=== PATIENT | female | born 1960 | race African-American/Black ===

== ENCOUNTER 2016-10-07 15:14 | Emergency (ER) | payer SELFPAY ==
[~2016-10-07] VITALS: Ht 160 cm; Wt 75.0 kg
[~2016-10-07 15:14] MED LIST: IBUP800T23 PO; TRAM50 PO
[2016-10-07 15:16] VITALS: BP 121/65; PULSE 84; RESP 24; TEMP 97.5; O2SAT 96
[2016-10-07] MEDS ORDERED: methylPREDNISolone SOD SUCC 125 MG/2 ML VIAL ONE (16:07)
[2016-10-07] MEDS ORDERED: NAPR500T PO (16:08)
--- NOTE | 2016-10-07 16:10 | PD ---
HPI Chief Complaint: Pain: Acute or Chronic Time Seen by Provider: 16:08 Travel History International Travel<30 days: No Contact w/Intl Traveler<30days: No Traveled to known affect area: No History of Present Illness HPI 56-year-old female presents to the emergency department for evaluation of right foot pain for 2 days. Denies any injury or trauma to her foot. States that in the middle of the night 2 nights ago she began to have cramping in the bottom of her right foot. States that this pain has persisted. Pain is aggravated with weightbearing. Alleviated with rest. Denies any fever, chills, nausea, vomiting, numbness or tingling, weakness, calf tenderness or pain. She has not taken anything for symptoms so far. No other complaints. PFSH Past Medical History Anemia: Yes Arthritis: Yes Asthma: No Autoimmune Disease: No Blood Disorders: No Anxiety: No Depression: No Heart Rhythm Problems: No Cancer: No Cardiovascular Problems: Yes (anemia) High Cholesterol: No Chemotherapy: No Chest Pain: No Congestive Heart Failure: No COPD: No Cerebrovascular Accident: No Diabetes: No Diminished Hearing: No Endocrine: No Gastrointestinal Disorders: Yes (GERD) GERD: No Genitourinary: Yes (INCONTINENCE) Headaches: Yes Hepatitis: No Hiatal Hernia: No Hypertension: No Immune Disorder: No Kidney Stones: No Musculoskeletal: Yes (CERVICAL DISC DISPLACEMENT) Neurologic: Yes (LEFT ARM/HAND NUMBNESS ) Psychiatric: No Reproductive: No Respiratory: No Myocardial Infarction: No Radiation Therapy: No Renal Failure: No Seizures: No Sleep Apnea: No Thyroid Disease: No Ulcer: No Menopausal: Yes Tubal Ligation: Yes Past Surgical History Abdominal Surgery: Yes (LAP BRYAN) AICD: No Section: Yes Cholecystectomy: Yes Gynecologic Surgery: Yes (C-SECTIONS X 3, HYSTERECTOMY 2007) Hysterectomy: Yes Joint Replacement: No Pacemaker: No Other Surgery: Yes Social History Alcohol Use: No Tobacco Use: No Substance Use: No Allergies-Medications (Allergen,Severity, Reaction): Coded Allergies: Aspirin (Verified Allergy, Severe, Itching, 02/02/16) Reported Meds & Prescriptions Reported Meds & Active Scripts Active Naproxen 500 Mg Tab 500 Mg PO BID 7 Days Ibuprofen 800 Mg Tab 800 Mg PO Q6H PRN Ultram (Tramadol HCl) 50 Mg Tab 50 Mg PO Q6 PRN Review of Systems Except as stated in HPI: all other systems reviewed are Neg Physical Exam Narrative GENERAL: Well-nourished and well-developed pleasant female patient in no acute distress who is nontoxic appearing. SKIN: Warm and dry. HEAD: Normocephalic and atraumatic. EYES: No injection, drainage, or hyphema noted. PERRLA. EOMI. NECK: Supple and the trachea is midline. CARDIOVASCULAR: Regular rate and rhythm. RESPIRATORY: Breath sounds are equal bilaterally with no accessory muscle use, wheezing, rhonchi, or crackles. MUSCULOSKELETAL: Tenderness to palpation along the plantar medial foot. No tenderness over the heel. No obvious deformities, swelling, cyanosis, or ecchymosis is present throughout the upper and lower extremities. Patient has full range of motion without any signs of neurovascular compromise. NEUROLOGICAL: Awake, alert, and oriented. Normal speech and gait. Cranial nerves are grossly intact. Data Data Last Documented VS Vital Signs Date Time Temp Pulse Resp B/P Pulse Ox O2 Delivery O2 Flow Rate FiO2 10/07/16 15:16 97.5 84 24 121/65 96 Room Air Orders Methylprednisolone So Succ Inj (Solumedr (10/07/16 16:07) MDM Medical Decision Making Medical Screen Exam Complete: Yes Emergency Medical Condition: Yes Differential Diagnosis Plantar fasciitis versus foot contusion versus sprain versus cramping Narrative Course 56-year-old female presents to the emergency department for evaluation of right plantar foot pain for 2 days. Patient is afebrile, vital signs are stable. No injury or trauma. The pain is along the plantar aspect of the foot and is point tender. The patient admittedly wears flat sandals and shoes. I suspect she has plantar fasciitis. Discussed importance of supportive foot wear. Discussed supportive care and advised to follow-up with her PCP. Diagnosis Primary Impression: Plantar fasciitis of right foot Referrals: Primary Care Physician Patient Instructions: General Instructions, Plantar Fasciitis (ED) Additional Instructions: Get supportive shoes. Take medications as prescribed with food and a full glass of water. Follow-up with your Primary Care Physician. Return to the ED for any acute worsening of symptoms. Med/Other Pt SpecificInfo: Prescription(s) given Scripts Naproxen 500 Mg [id number] Mg PO BID 7 Days Ref 0 Prov:Elva Mo MD 10/07/16 Disposition: 01 DISCHARGE HOME Condition: Stable Bettina Whitleyb 11, 2017 16:10
== END 2016-10-07 16:24 | disposition home or self-care (01) ==
LOC: NEPB 15:14
DX: M72.2 Plantar fascial fibromatosis (principal); D64.9 Anemia, unspecified; K21.9 Gastro-esophageal reflux disease without esophagitis
CPT/HCPCS: 99282; J2930

== ENCOUNTER 2018-06-13 16:42 | Observation (INO) ==
[2018-06-13] MEDS ORDERED: Famotidine PF Inj 20 MG/2 ML Vial IV.PUSH ONE (21:18)
[2018-06-13] MEDS ORDERED: Morphine Inj 4 MG/ML Vial IV.PUSH ONE (21:18)
[2018-06-13] MEDS ORDERED: Sod Chloride 0.9% Inj 1,000 ML IV.SIG ONE (21:18)
[2018-06-13 21:42] LABS: Baso % (Auto) 0.4 % (0.0-2.0); Eos % (Auto) 0.4 % (0.0-4.0); Hemoglobin 14.5 gm/dL (11.6-15.3); Lymph # (Auto) 1.9 th/mm3 (1.0-4.8); Lymph % (Auto) 19.3 % (9.0-44.0); Mean Corpuscular HGB Conc 32.3 % (32.0-36.0); Mean Corpuscular Hemoglobin 26.7 pg (27.0-34.0); Mean Corpuscular Volume 82.7 fL (80.0-100.0); Mean Platelet Volume 10.1 fL (7.0-11.0); Mono % (Auto) 9.5 % (0.0-8.0); Neut # (Auto) 7.1 th/mm3 (1.8-7.7); Neut % (Auto) 70.4 % (16.0-70.0); Platelet Count 175 th/mm3 (150-450); Red Blood Count 5.44 mil/mm3 (4.00-5.30); Red Cell Distribution Width 14.3 % (11.6-17.2)
--- NOTE | 2018-06-13 21:42 | ED ---
HPI General Chief Complaint: Abdominal Pain Stated Complaint: Lower ABD pain Time Seen by Provider: 06/13/18 21:09 Source: patient Mode of arrival: ambulatory Limitations: no limitations History of Present Illness HPI narrative: Patient is a 57-year-old female who presents with complaint of epigastric and suprapubic abdominal pain over the last 3 weeks associated with intermittent nausea and nonbilious, nonbloody emesis. No diarrhea and her last bowel movement was yesterday and was normal. No fever nor chills. She states that the pain normally occurs after she eats hamburger or hot dogs but she feels well after eating potato chips. She does not know if it is associated with alcohol intake. Her last beer was today. No chest pain or shortness of breath. No cough nor congestion. MD complaint: Reports abdominal pain Onset (ago): week(s) Pain Consistency: intermittent Location: Reports epigastric and suprapubic Severity: moderate Quality: Reports aching and fullness Radiation: Reports none Migration to: Reports no migration Relieving factors: nothing Exacerbating factors: nothing Associated symptoms: Reports nausea and vomiting Related Data Home Medications Medication Instructions Recorded Confirmed No Known Home Medications 06/13/18 06/13/18 Allergies Allergy/AdvReac Type Severity Reaction Status Date / Time aspirin Allergy Severe Itching Unverified 04/10/17 18:01 Review of Systems ROS: all other systems reviewed are negative [facility] Medical History Medical History Kidney stone (Acute) Surgical History Surgical History History of cholecystectomy (Acute) Social History Social History Substance History: No History of Abuse Second Hand Smoke Exposure: No Smoking Status: Never smoker How Often Do You Have a Drink Containing Alcohol: 4 or more times a week Recent Travel in [facility] within the Last 8 Weeks: No Recent Out of Country Travel within the Last 8 Weeks: No Immunization History Tetanus Immunization: Unsure Exam Narrative Exam Narrative: GENERAL: Well-appearing female in no acute distress SKIN: Focused skin assessment warm/dry. No rashes. HEAD: Atraumatic. Normocephalic. EYES: Pupils equal and round. No scleral icterus. No injection or drainage. ENT: No nasal bleeding or discharge. Mucous membranes pink and moist. NECK: Trachea midline. No JVD. CARDIOVASCULAR: Regular rate and rhythm. No murmur appreciated. Intact and equal peripheral pulses. Normal cap refill. RESPIRATORY: No accessory muscle use. Clear to auscultation. Breath sounds equal bilaterally. GASTROINTESTINAL: Abdomen soft, slight tenderness in the epigastric region, nondistended. Hepatic and splenic margins not palpable. MUSCULOSKELETAL: No obvious deformities. No clubbing. No cyanosis. No edema. NEUROLOGICAL: Awake and alert. No obvious cranial nerve deficits. Motor grossly within normal limits. Normal sensation. No ataxia. Normal speech. PSYCHIATRIC: Appropriate mood and affect; insight and judgment normal. Course Initial Documented Vital Signs Temperature 99.0 F 06/13/18 17:15 Pulse Rate 80 06/13/18 17:15 Blood Pressure 148/71 H 06/13/18 17:15 Pulse Oximetry 100 06/13/18 17:15 Last Documented Vital Signs Temperature 99.0 F 06/13/18 17:15 Pulse Rate 65 06/13/18 21:38 Respiratory Rate 16 06/13/18 21:05 Blood Pressure 161/71 H 06/13/18 21:05 Pulse Oximetry 99 06/13/18 21:05 Medical Decision Making MDM Narrative Medical decision making narrative: Patient is a 57-year-old female who presents with complaint of abdominal pain with nausea and vomiting. Labs are relatively unremarkable. EKG is without acute ischemic changes. CT pending at time of checkout. CT abdomen pelvis reveals a biliary stent with stones proximal to the stent. There is a trace elevation in the LFTs which has not been observed before. The postprandial nature of the pain is concerning for common bile duct disease. I discussed this with the patient in detail. I also spoke with Dr. Lyon of GI who recommended the patient spend the night here for a removal of the stent tomorrow. Symptoms are postprandial in nature with intra-and extrahepatic biliary ductal dilatation with a stent present and stones proximal to the stent. Call placed to Dr Snow at 1210AM. Medical Screen Exam Complete: Yes Emergency Medical Condition: Yes Differential Diagnosis Differential Diagnosis: Differential diagnosis includes but is not limited to gastritis, pancreatitis, electrolyte abnormality. Medical Records Medical records reviewed: Yes I reviewed the patient's medical records. Lab Data Result diagrams: 06/13/18 21:25 06/13/18 22:30 Lab Results 06/13/18 06/13/18 06/13/18 Range/Units 21:25 21:25 22:30 WBC 10.0 (4.0-11.0) th/mm3 RBC 5.44 H (4.00-5.30) mil/mm3 Hgb 14.5 (11.6-15.3) gm/dL Hct 45.0 (35.0-46.0) % MCV 82.7 (80.0-100.0) fL MCH 26.7 L (27.0-34.0) pg MCHC 32.3 (32.0-36.0) % RDW 14.3 (11.6-17.2) % Plt Count 175 (150-450) th/mm3 MPV 10.1 (7.0-11.0) fL Neut % (Auto) 70.4 H (16.0-70.0) % Lymph % (Auto) 19.3 (9.0-44.0) % [place]ruff % (Auto) 9.5 H (0.0-8.0) % Eos % (Auto) 0.4 (0.0-4.0) % Baso % (Auto) 0.4 (0.0-2.0) % Neut # (Auto) 7.1 (1.8-7.7) th/mm3 Lymph # (Auto) 1.9 (1.0-4.8) th/mm3 Woodruff # (Auto) 1.0 H (0.0-0.9) th/mm3 Eos # (Auto) 0.0 (0.0-0.4) th/mm3 Baso # (Auto) 0.0 (0.0-0.2) th/mm3 WBC Differential . Differential Comment Auto diff final Sodium 129 L (136-145) meq/L Potassium 6.1 H 3.8 D (3.5-5.1) meq/L Chloride 101 (98-107) meq/L Carbon Dioxide 22.2 (21.0-32.0) meq/L Anion Gap 6 (5-15) meq/L BUN 7 (7-18) mg/dL Creatinine 0.80 (0.50-1.00) mg/dL Estimated GFR 89 (>89) mL/min Random Glucose 83 (74-106) mg/dL Calcium 8.4 L (8.5-10.1) mg/dL Magnesium 2.2 (1.5-2.5) mg/dL Total Bilirubin 1.3 H (0.2-1.0) mg/dL AST 67 H (15-37) U/L ALT 75 H (10-53) U/L Alkaline Phosphatase 270 H (45-117) U/L Troponin I Less than 0.02 L (0.02-0.05) ng/mL Total Protein 8.8 H (6.4-8.2) g/dL Albumin 3.5 (3.4-5.0) g/dL Lipase 57 L (73-393) U/L Urine Color (Yellw/Straw) Urine Clarity (Clear) Urine pH (5.0-8.5) Ur Specific [place] (1.002-1.035) Urine Protein (Neg-Trace) mg/dL Urine Glucose (UA) (Negative) mg/dL Urine Ketones (Negative) mg/dL Urine Occult Blood (Negative) Urine Nitrate (Negative) Urine Bilirubin (Negative) Urine Urobilinogen (Less than 2) mg/dL Ur Leukocyte Esterase (Negative) Urine RBC (0-3) /hpf Urine WBC (0-5) /hpf Ur Squamous Epith Cells (0-5) /hpf Urine Bacteria (None) /hpf Urine Mucus (Occasional) /lpf Micro UA Comment Ur Microscopic Review Urine Culture Comments 06/13/18 Range/Units 23:00 WBC (4.0-11.0) th/mm3 RBC (4.00-5.30) mil/mm3 Hgb (11.6-15.3) gm/dL Hct (35.0-46.0) % MCV (80.0-100.0) fL MCH (27.0-34.0) pg MCHC (32.0-36.0) % RDW (11.6-17.2) % Plt Count (150-450) th/mm3 MPV (7.0-11.0) fL Neut % (Auto) (16.0-70.0) % Lymph % (Auto) (9.0-44.0) % Woodruff % (Auto) (0.0-8.0) % Eos % (Auto) (0.0-4.0) % Baso % (Auto) (0.0-2.0) % Neut # (Auto) (1.8-7.7) th/mm3 Lymph # (Auto) (1.0-4.8) th/mm3 [place]ruff # (Auto) (0.0-0.9) th/mm3 Eos # (Auto) (0.0-0.4) th/mm3 Baso # (Auto) (0.0-0.2) th/mm3 WBC Differential Differential Comment Sodium (136-145) meq/L Potassium (3.5-5.1) meq/L Chloride (98-107) meq/L Carbon Dioxide (21.0-32.0) meq/L Anion Gap (5-15) meq/L BUN (7-18) mg/dL Creatinine (0.50-1.00) mg/dL Estimated GFR (>89) mL/min Random Glucose (74-106) mg/dL Calcium (8.5-10.1) mg/dL Magnesium (1.5-2.5) mg/dL Total Bilirubin (0.2-1.0) mg/dL AST (15-37) U/L ALT (10-53) U/L Alkaline Phosphatase (45-117) U/L Troponin I (0.02-0.05) ng/mL Total Protein (6.4-8.2) g/dL Albumin (3.4-5.0) g/dL Lipase (73-393) U/L Urine Color Yellow (Yellw/Straw) Urine Clarity Clear (Clear) Urine pH 5.0 (5.0-8.5) Ur Specific [place] 1.006 (1.002-1.035) Urine Protein Negative (Neg-Trace) mg/dL Urine Glucose (UA) Negative (Negative) mg/dL Urine Ketones Negative (Negative) mg/dL Urine Occult Blood Small H (Negative) Urine Nitrate Negative (Negative) Urine Bilirubin Negative (Negative) Urine Urobilinogen Less than 2 (Less than 2) mg/dL Ur Leukocyte Esterase Negative (Negative) Urine RBC 1 (0-3) /hpf Urine WBC 1 (0-5) /hpf Ur Squamous Epith Cells <1 (0-5) /hpf Urine Bacteria Occasional H (None) /hpf Urine Mucus Few H (Occasional) /lpf Micro UA Comment Culture not ind Ur Microscopic Review Not Reportable Urine Culture Comments Culture not ind Imaging Data Radiologist's impression: Abdomen/Pelvis CT 06/13/18 21:18 CONCLUSION: 1. Biliary stent in the common bile duct with multiple stones in the common bile duct. There is intrahepatic and extrahepatic biliary duct dilatation. There is some vague increased density seen in the martha hepatis region. This could be secondary to debris filled ducts. An underlying mass in this region cannot be excluded. 2. Dilatation the pancreatic duct. Discharge Plan Discharge Disposition Patient Disposition: 30 Still Patient Discharge Condition Condition: Stable Discharge Details Diagnosis: Abdominal pain, acute Physicians Team ED Provider: Anahy Luis Primary Care Provider: Primary Care Physici,No Rxs /Orders / Referrals /Forms Prescriptions: No Action No Known Home Medications RF: 0 Discharge Interventions Interventions: Vital Signs Last Done: 06/13/18 21:05 Status ED Status: Ready for Discharge
[2018-06-13 22:09] LABS: Albumin 3.5 g/dL (3.4-5.0); Anion Gap 6 meq/L (5-15); Aspartate Aminotransferase 67 U/L (15-37); Blood Urea Nitrogen 7 mg/dL (7-18); Calcium 8.4 mg/dL (8.5-10.1); Carbon Dioxide 22.2 meq/L (21.0-32.0); Chloride 101 meq/L (98-107); Glomerular Filtration Rate 89 mL/min (>89); Glucose,Random 83 mg/dL (74-106); Lipase 57 U/L (73-393); Magnesium 2.2 mg/dL (1.5-2.5); Potassium 6.1 meq/L (3.5-5.1); Sodium 129 meq/L (136-145)
[2018-06-13 22:12] LABS: Alanine Aminotransferase 75 U/L (10-53); Alkaline Phosphatase 270 U/L (45-117); Total Protein 8.8 g/dL (6.4-8.2)
[2018-06-13 23:23] LABS: Bacteria,Urine Occasional /hpf; Bilirubin,Urine Negative (Negative); Clarity,Urine Clear (Clear); Color,Urine Yellow (Yellw/Straw); Glucose,Urine (UA) Negative (Negative); Leukocyte Esterase,Urine Negative (Negative); Mucus,Urine Few /lpf (Occasional); Nitrite,Urine Negative (Negative); Specific Gravity,Urine 1.006 (1.002-1.035); Squamous Epithelial Cell,Urine <1 /hpf (0-5)
--- NOTE | 2018-06-13 23:33 | CT ---
EXAM DATE: 06/13/2018 9:55 PM EDT AGE/SEX: 57 years / Female INDICATIONS: Upper abdominal pain. CLINICAL DATA: This is the patient's initial encounter. Patient reports that signs and symptoms have been present for 1 day and indicates a pain score of 0/10. MEDICAL/SURGICAL HISTORY: Renal calculi. Cholecystectomy. ORAL CONTRAST: No oral contrast ingested. RADIATION DOSE: 7.17 CTDI (mGy) COMPARISON: No prior exams available for comparison. TECHNIQUE: Multiple contiguous axial images were obtained through the abdomen and pelvis following b olus infusion of 70 ml Omnipaque 350 (iohexol) nonionic water-soluble contrast as a single exam dos e. No oral contrast ingested. Using automated exposure control and adjustment of the mA and/or kV ac cording to patient size, radiation dose was kept as low as reasonably achievable to obtain optimal di agnostic quality images. DICOM format image data is available electronically for review and comparis on. FINDINGS: Lower Lungs: The visualized lower lungs are clear. Liver: There is intrahepatic biliary ductal dilatation. The dilatation the common bile duct. There is some vague density seen at the martha hepatis at the bile duct confluence. The do appear to be multip le calcifications within the distal common bile duct measuring up to 5 mm. There is small 5 mm hypode nsity seen at the posterior superior aspect of the right lobe of the liver likely representing a smal l cyst. The patient is status post cholecystectomy. Spleen: Homogeneous density without enlargement. Pancreas: The pancreatic duct is dilated measuring 6 mm. Kidneys: Normal in size and shape. No evidence of mass or hydronephrosis. Adrenal Glands: Unremarkable. Aorta: The aorta and proximal iliac vessels are grossly unremarkable without aneurysmal dilation. Bowel/Mesentery: The bowel loops are grossly unremarkable. The cecum and sigmoid colon have a normal configuration. The appendix is normal. Abdominal Wall: Intact. Retroperitoneum: No evidence of adenopathy in the retrocrural, para-aortic, or deep pelvic regions. Bladder: Contours are smooth. Reproductive Organs: No abnormal masses or calcifications seen. Inguinal: The inguinal region is unremarkable without evidence of adenopathy. Bony Structures: Unremarkable. CONCLUSION: 1. Biliary stent in the common bile duct with multiple stones in the common bile duct. There is intr ahepatic and extrahepatic biliary duct dilatation. There is some vague increased density seen in the martha hepatis region. This could be secondary to debris filled ducts. An underlying mass in this ana on cannot be excluded. 2. Dilatation the pancreatic duct. Electronically signed by: Daniel Agudelo MD 06/13/2018 11:32 PM EDT
[2018-06-14] MEDS ORDERED: Bisacodyl 10 MG Supp RECTAL PRN (03:07)
[2018-06-14] MEDS ORDERED: Morphine Sulfate Inj 2 MG/ML Vial IV.PUSH PRN (04:07)
[2018-06-14] MEDS ORDERED: Sodium Chloride 0.9% 2 ML Flush PRN IV.FLUSH (04:13)
--- NOTE | 2018-06-14 04:22 | P.HP ---
History of Present Illness Service: [facility] Primary Care Physician: No Primary Care Physician History of Present Illness: 57-year-old female with a past medical history significant for anemia and gallstones with previous biliary stent placement presents to the emergency department for evaluation of abdominal pain times 3 weeks. The patient endorses postprandial nausea and vomiting with intermittent chills. She is an extremely poor historian. She reports that she had a biliary stent placed "years ago". She has not had any follow-up surrounding this. She denies any chest pain or shortness of breath. No lateralizing signs/symptoms. Review of Systems All other systems reviewed negative except as stated in HPI PMFSH - History History Provided By: Patient - Medical History Medical History: Medical History (Last Updated 06/14/18 @ 04:12 by Mary Snow MD) Gallbladder disease Kidney stone - Surgical History Surgical History: Surgical History (Last Updated 06/14/18 @ 04:13 by Mary Snow MD) History of History of biliary duct stent placement History of cholecystectomy - Family History Family History: Family History (Last Updated 06/14/18 @ 04:13 by Mary Snow MD) Other Colon cancer - Tobacco History Second Hand Smoke Exposure: No Smoking Status: Never smoker - Alcohol History How Often Do You Have a Drink Containing Alcohol: 4 or more times a week - Substance Use History Substance History: No History of Abuse - Travel History Recent Travel in the [place] Within the Last 8 Weeks: No Recent Travel Out of the Country Within the Last 8 Weeks: No - Immunization History Tetanus Immunization: Unsure Medications and Allergies Active Medications: Active Medications Bisacodyl (Dulcolax Supp) 10 mg RECTAL DAILY PRN PRN Reason: SEVERE CONSITIPATION Sodium Chloride (Ns Inj) 1,000 mls @ 100 mls/hr IV.CONT .Q10H PHIL Morphine Sulfate (Morphine Inj) 2 mg IV.PUSH Q4H PRN PRN Reason: pain 6-10 Ondansetron HCl (Zofran Inj) 4 mg IV.PUSH Q6H PRN PRN Reason: NAUSEA OR VOMITING Sennosides (Senokot) 17.2 mg PO Q12H PRN PRN Reason: Moderate Constipation Sodium Chloride (Ns Flush) 2 ml IV.FLUSH PRN PRN PRN Reason: FLUSH AFTER USING IV ACCESS Last Admin: 06/13/18 21:51 Dose: 2 ml Allergies Allergy/AdvReac Type Severity Reaction Status Date / Time aspirin Allergy Severe Itching Unverified 04/10/17 18:01 Home Medications Medication Instructions Recorded Confirmed Type No Known Home Medications 06/13/18 06/13/18 History Exam Vital signs: Vital Signs 06/13/18 17:15 06/13/18 21:05 06/13/18 21:38 Temperature 99.0 F Pulse Rate 80 82 65 Respiratory Rate 16 Blood Pressure 148/71 H 161/71 H Pulse Oximetry 100 99 06/14/18 00:04 06/14/18 02:26 06/14/18 03:08 Temperature 99.2 F Pulse Rate 61 74 72 Respiratory Rate 16 18 18 Blood Pressure 124/62 138/59 L 142/62 H Pulse Oximetry 100 100 98 Intake & Output 06/13/18 06/13/18 06/14/18 06:59 18:59 06:59 Intake Total 1000 / 1000 Balance 1000 / 1000 Weight 65.771 kg Intake: IV 1000 / 1000 NS Inj 1,000 ML @ Wide Open IV. 1000 / 1000 SIG BOLUS ONE Rx#:[id number] Narrative: Gen.: No acute distress Head: Normocephalic. Atraumatic. EENT: Pupils equal round and reactive to light. Nose without drainage. Airway intact. Throat without injection. Cardiovascular: Regular rate and rhythm. No murmurs, rubs or gallops. Respiratory: Lungs clear to auscultation bilaterally. No wheezes or rhonchi. Abdomen: Soft, tender to palpation in the epigastrium, nondistended. No peritoneal signs. Musculoskeletal: No gross deformities. No edema. Skin: No obvious rashes or erythema. Neuro: Sensory and motor grossly intact. Cranial nerves II through XII grossly intact. Results - Labs CBC & Chem 7: 06/13/18 21:25 06/13/18 22:30 Labs: Laboratory Results - last 24 hr 06/13/18 06/13/18 06/13/18 21:25 21:25 22:30 WBC 10.0 RBC 5.44 H Hgb 14.5 Hct 45.0 MCV 82.7 MCH 26.7 L MCHC 32.3 RDW 14.3 Plt Count 175 MPV 10.1 Neut % (Auto) 70.4 H Lymph % (Auto) 19.3 [place] % (Auto) 9.5 H Eos % (Auto) 0.4 Baso % (Auto) 0.4 Neut # (Auto) 7.1 Lymph # (Auto) 1.9 [place] # (Auto) 1.0 H Eos # (Auto) 0.0 Baso # (Auto) 0.0 WBC Differential . Differential Comment Auto diff final Sodium 129 L Potassium 6.1 H 3.8 D Chloride 101 Carbon Dioxide 22.2 Anion Gap 6 BUN 7 Creatinine 0.80 Estimated GFR 89 Random Glucose 83 Calcium 8.4 L Magnesium 2.2 Total Bilirubin 1.3 H AST 67 H ALT 75 H Alkaline Phosphatase 270 H Troponin I Less than 0.02 L Total Protein 8.8 H Albumin 3.5 Lipase 57 L Urine Color Urine Clarity Urine pH Ur Specific [place] Urine Protein Urine Glucose (UA) Urine Ketones Urine Occult Blood Urine Nitrate Urine Bilirubin Urine Urobilinogen Ur Leukocyte Esterase Urine RBC Urine WBC Ur Squamous Epith Cells Urine Bacteria Urine Mucus Micro UA Comment Ur Microscopic Review Urine Culture Comments 06/13/18 23:00 WBC RBC Hgb Hct MCV MCH MCHC RDW Plt Count MPV Neut % (Auto) Lymph % (Auto) [place] % (Auto) Eos % (Auto) Baso % (Auto) Neut # (Auto) Lymph # (Auto) [place] # (Auto) Eos # (Auto) Baso # (Auto) WBC Differential Differential Comment Sodium Potassium Chloride Carbon Dioxide Anion Gap BUN Creatinine Estimated GFR Random Glucose Calcium Magnesium Total Bilirubin AST ALT Alkaline Phosphatase Troponin I Total Protein Albumin Lipase Urine Color Yellow Urine Clarity Clear Urine pH 5.0 Ur Specific [place] 1.006 Urine Protein Negative Urine Glucose (UA) Negative Urine Ketones Negative Urine Occult Blood Small H Urine Nitrate Negative Urine Bilirubin Negative Urine Urobilinogen Less than 2 Ur Leukocyte Esterase Negative Urine RBC 1 Urine WBC 1 Ur Squamous Epith Cells <1 Urine Bacteria Occasional H Urine Mucus Few H Micro UA Comment Culture not ind Ur Microscopic Review Not Reportable Urine Culture Comments Culture not ind - Imaging Impressions Abdomen/Pelvis CT 06/13/18 21:18 CONCLUSION: 1. Biliary stent in the common bile duct with multiple stones in the common bile duct. There is intrahepatic and extrahepatic biliary duct dilatation. There is some vague increased density seen in the martha hepatis region. This could be secondary to debris filled ducts. An underlying mass in this region cannot be excluded. 2. Dilatation the pancreatic duct. Caprini VTE Risk Assessment Caprini VTE Risk Assessment: No/Low Risk (score <= 1) Caprini Risk Assessment Model: Point Value = 1 Point Value = 2 Point Value = 3 Point Value = 5 Age 41-60 Minor surgery BMI > 25 kg/m2 Swollen legs Varicose veins or History of unexplained or recurrent spontaneous Oral contraceptives or hormone replacement Sepsis (< 1 month) Serious lung disease, including pneumonia (< 1 month) Abnormal pulmonary function Acute myocardial infarction Congestive heart failure (< 1 month) History of inflammatory bowel disease Medical patient at bed rest Age 61-74 Arthroscopic surgery Major open surgery (> 45 min) Laparoscopic surgery (> 45 min) Malignancy Confined to bed (> 72 hours) Immobilizing plaster cast Central venous access Age >= 75 History of VTE Family history of VTE Factor V Leiden Prothrombin [id number] Lupus anticoagulant Anticardiolipin antibodies Elevated serum homocysteine Heparin-induced thrombocytopenia Other congenital or acquired thrombophilia Stroke (< 1 month) Elective arthroplasty Hip, pelvis, or leg fracture Acute spinal cord injury (< 1 month) Prophylaxis Regimen: Total Risk Factor Score Risk Level Prophylaxis Regimen 0-1 Low Early ambulation 2 Moderate Order ONE of the following: *Sequential Compression Device (SCD) *Heparin 5000 units SQ BID 3-4 Higher Order ONE of the following medications: *Heparin 5000 units SQ TID *Enoxaparin/Lovenox 40 mg SQ daily (WT < 150 kg, CrCl > 30 mL/min) *Enoxaparin/Lovenox 30 mg SQ daily (WT < 150 kg, CrCl > 10-29 mL/min) *Enoxaparin/Lovenox 30 mg SQ BID (WT < 150 kg, CrCl > 30 mL/min) AND/OR *Sequential Compression Device (SCD) 5 or more Highest Order ONE of the following medications: *Heparin 5000 units SQ TID (Preferred with Epidurals) *Enoxaparin/Lovenox 40 mg SQ daily (WT < 150 kg, CrCl > 30 mL/min) *Enoxaparin/Lovenox 30 mg SQ daily (WT < 150 kg, CrCl > 10-29 mL/min) *Enoxaparin/Lovenox 30 mg SQ BID (WT < 150 kg, CrCl > 30 mL/min) AND *Sequential Compression Device (SCD) Assessment and Plan - Plan Assessment/plan: 1. Abdominal pain CT of the abdomen/pelvis significant for biliary stent with stones proximal to the stent with intra-and extrahepatic biliary ductal dilatation and dilatation of the pancreatic duct LFTs mildly elevated Gastroenterology consulted, appreciate assistance FEN N.p.o. NS at 100 cc/hour Electrolytes: Monitor and replete as needed
[2018-06-14] MEDS: Sod Chloride 0.9% Inj 1,000 ML IV.CONT SCH ×2 (05:27→14:10)
--- NOTE | 2018-06-14 10:29 | P.CONGI ---
History of Present Illness Consult date: 06/14/18 Consult reason: Biliary stent replacement Chief complaint: Poss Biliary Stent Obstruction History of Present Illness: This is a 57-year-old female who entered the emergency room for further evaluation on 06/13/2018 with mid and right upper quadrant abdominal pain. Onset of symptoms approximately 3 weeks ago which have worsened over the past week. Patient also notes fever and chills for the past week along with some nausea and decreased appetite and bloating. Patient does have a history of constipation but denies any straining and denies any melena stools or diarrhea. Patient does have a history of anemia as well as gallstones and had biliary stent replacement approximately 2013 or 2014 without any follow-up. Patient also notes daily alcohol consumption of beer and occasional shots of liquor. Current labs show hemoglobin 14.5, WBC count 10, bilirubin 1.3, AST 67, ALT 75, alkaline phosphatase 270, and lipase normal at 57. Gastroenterology was consulted to assist with biliary stent replacement and plan of care. Patient does note brother positive history of colon cancer at the age of 38 and patient notes no previous colonoscopy but EGD was evaluated with previous biliary stent placement. CT scan of the abdomen and pelvis does show a biliary stent in the common bile duct with multiple stones in the common bile duct. There is intrahepatic and extrahepatic biliary duct dilatation along with dilatation of the pancreatic duct. Some vague increased density seen in the martha hepatis region this could be debris-filled ducts but an underlying mass in this region cannot be excluded. <Lu Frazier - Last Filed: 06/14/18 10:29> Review of Systems All other systems reviewed negative except as stated in HPI <Lu Frazier - Last Filed: 06/14/18 10:29> PMFSH - History History Provided By: Patient - Medical History Medical History: Medical History (Last Updated 06/14/18 @ 04:12 by Mary Snow MD) Gallbladder disease Kidney stone - Surgical History Surgical History: Surgical History (Last Updated 06/14/18 @ 04:13 by Mary Snow MD) History of History of biliary duct stent placement History of cholecystectomy - Family History Family History: Family History (Last Updated 06/14/18 @ 04:13 by Mary Snow MD) Other Colon cancer - Tobacco History Second Hand Smoke Exposure: Yes Tobacco Use In Past 30 Days: No Smoking Status: Never smoker - Alcohol History How Often Do You Have a Drink Containing Alcohol: 4 or more times a week - Substance Use History Substance History: Past History - Substance Use Type Crack/Cocaine Route Used: Inhalation Reason for Use: Peer Pressure - Travel History Recent Travel in the [place] Within the Last 8 Weeks: No Recent Travel Out of the Country Within the Last 8 Weeks: No - Immunization History Tetanus Immunization: Unsure <Lu Frazier - Last Filed: 06/14/18 10:29> - Medical History Medical History: Medical History (Last Updated 06/14/18 @ 04:12 by Mary Snow MD) Gallbladder disease Kidney stone - Surgical History Surgical History: Surgical History (Last Updated 06/14/18 @ 04:13 by Mary Snow MD) History of History of biliary duct stent placement History of cholecystectomy - Family History Family History: Family History (Last Updated 06/14/18 @ 04:13 by Mary Snow MD) Other Colon cancer <David Lepe - Last Filed: 06/14/18 14:45> Medications and Allergies Active Medications: Active Medications Bisacodyl (Dulcolax Supp) 10 mg RECTAL DAILY PRN PRN Reason: SEVERE CONSITIPATION Sodium Chloride (Ns Inj) 1,000 mls @ 100 mls/hr IV.CONT .Q10H PHIL Last Admin: 06/14/18 05:27 Dose: 100 mls/hr Morphine Sulfate (Morphine Inj) 2 mg IV.PUSH Q4H PRN PRN Reason: pain 6-10 Ondansetron HCl (Zofran Inj) 4 mg IV.PUSH Q6H PRN PRN Reason: NAUSEA OR VOMITING Sennosides (Senokot) 17.2 mg PO Q12H PRN PRN Reason: Moderate Constipation Sodium Chloride (Ns Flush) 2 ml IV.FLUSH BID PHIL Sodium Chloride (Ns Flush) 2 ml IV.FLUSH PRN PRN PRN Reason: FLUSH AFTER USING IV ACCESS <Lu Frazier - Last Filed: 06/14/18 10:29> Active Medications: Active Medications Bisacodyl (Dulcolax Supp) 10 mg RECTAL DAILY PRN PRN Reason: SEVERE CONSITIPATION Sodium Chloride (Ns Inj) 1,000 mls @ 100 mls/hr IV.CONT .Q10H [facility] Last Admin: 06/14/18 14:10 Dose: Not Given Morphine Sulfate (Morphine Inj) 2 mg IV.PUSH Q4H PRN PRN Reason: pain 6-10 Ondansetron HCl (Zofran Inj) 4 mg IV.PUSH Q6H PRN PRN Reason: NAUSEA OR VOMITING Sennosides (Senokot) 17.2 mg PO Q12H PRN PRN Reason: Moderate Constipation Sodium Chloride (Ns Flush) 2 ml IV.FLUSH BID [facility] Last Admin: 06/14/18 14:09 Dose: Not Given Sodium Chloride (Ns Flush) 2 ml IV.FLUSH PRN PRN PRN Reason: FLUSH AFTER USING IV ACCESS <David Lepe - Last Filed: 06/14/18 14:45> Allergies Allergy/AdvReac Type Severity Reaction Status Date / Time aspirin Allergy Severe Itching Unverified 04/10/17 18:01 Home Medications Medication Instructions Recorded Confirmed Type No Known Home Medications 06/13/18 06/13/18 History Exam Vital signs: Vital Signs 06/13/18 17:15 06/13/18 21:05 06/13/18 21:38 Temperature 99.0 F Pulse Rate 80 82 65 Respiratory Rate 16 Blood Pressure 148/71 H 161/71 H Pulse Oximetry 100 99 06/14/18 00:04 06/14/18 02:26 06/14/18 03:08 Temperature 99.2 F Pulse Rate 61 74 72 Respiratory Rate 16 18 Blood Pressure 124/62 138/59 L 142/62 H Pulse Oximetry 100 100 98 06/14/18 07:40 Temperature 99.9 F H Pulse Rate 73 Respiratory Rate 12 Blood Pressure 116/56 L Pulse Oximetry 99 Intake & Output 06/13/18 06/14/18 06/14/18 18:59 06:59 18:59 Intake Total 1000 / 1000 Balance 1000 / 1000 Weight 65.771 kg Intake: IV 1000 / 1000 NS Inj 1,000 ML @ Wide Open IV. 1000 / 1000 SIG BOLUS ONE Rx#:[id number] Other: # Voids 0 Date of Last Bowel Movement 06/12/18 - Constitutional mild distress, obese (Mild), cooperative - Routine HEENT Exam Head: Present: normocephalic ENT: Present: mucous membranes moist - Routine Neck Exam Present: supple - Routine Respiratory Exam Present: accessory muscle use (No obvious shortness of breath at rest) - Routine Cardiovascular Exam Present: S1, S2 - Routine Abdominal Exam Present: normoactive bowel sounds (Right upper quadrant and mid abdominal discomfort at rest and with light palpation, mild bloating) - Routine Skin Exam Present: intact - Routine Neurological Exam Present: alert <Lu Frazier - Last Filed: 06/14/18 10:29> Vital signs: Vital Signs 06/13/18 17:15 06/13/18 21:05 06/13/18 21:38 Temperature 99.0 F Pulse Rate 80 82 65 Respiratory Rate 16 Blood Pressure 148/71 H 161/71 H Pulse Oximetry 100 99 06/14/18 00:04 06/14/18 02:26 06/14/18 03:08 Temperature 99.2 F Pulse Rate 61 74 72 Respiratory Rate 16 18 18 Blood Pressure 124/62 138/59 L 142/62 H Pulse Oximetry 100 100 98 06/14/18 07:40 06/14/18 08:00 Temperature 99.9 F H 98.3 F Pulse Rate 73 69 Respiratory Rate 12 16 Blood Pressure 116/56 L 113/56 L Pulse Oximetry 99 99 Intake & Output 06/13/18 06/14/18 06/14/18 18:59 06:59 18:59 Intake Total 1000 / 1000 Balance 1000 / 1000 Weight 65.771 kg Intake: IV 1000 / 1000 NS Inj 1,000 ML @ Wide Open IV. 1000 / 1000 SIG BOLUS ONE Rx#:[id number] Other: # Voids 0 Date of Last Bowel Movement 06/12/18 <David Lepe - Last Filed: 06/14/18 14:45> Results - Labs CBC & Chem 7: 06/13/18 21:25 06/13/18 22:30 Labs: Laboratory Results - last 24 hr 06/13/18 06/13/18 06/13/18 21:25 21:25 22:30 WBC 10.0 RBC 5.44 H Hgb 14.5 Hct 45.0 MCV 82.7 MCH 26.7 L MCHC 32.3 RDW 14.3 Plt Count 175 MPV 10.1 Neut % (Auto) 70.4 H Lymph % (Auto) 19.3 [place] % (Auto) 9.5 H Eos % (Auto) 0.4 Baso % (Auto) 0.4 Neut # (Auto) 7.1 Lymph # (Auto) 1.9 [place] # (Auto) 1.0 H Eos # (Auto) 0.0 Baso # (Auto) 0.0 WBC Differential . Differential Comment Auto diff final Sodium 129 L Potassium 6.1 H 3.8 D Chloride 101 Carbon Dioxide 22.2 Anion Gap 6 BUN 7 Creatinine 0.80 Estimated GFR 89 Random Glucose 83 Calcium 8.4 L Magnesium 2.2 Total Bilirubin 1.3 H AST 67 H ALT 75 H Alkaline Phosphatase 270 H Troponin I Less than 0.02 L Total Protein 8.8 H Albumin 3.5 Lipase 57 L Urine Color Urine Clarity Urine pH Ur Specific [place] Urine Protein Urine Glucose (UA) Urine Ketones Urine Occult Blood Urine Nitrate Urine Bilirubin Urine Urobilinogen Ur Leukocyte Esterase Urine RBC Urine WBC Ur Squamous Epith Cells Urine Bacteria Urine Mucus Micro UA Comment Ur Microscopic Review Urine Culture Comments 06/13/18 23:00 WBC RBC Hgb Hct MCV MCH MCHC RDW Plt Count MPV Neut % (Auto) Lymph % (Auto) [place] % (Auto) Eos % (Auto) Baso % (Auto) Neut # (Auto) Lymph # (Auto) [place] # (Auto) Eos # (Auto) Baso # (Auto) WBC Differential Differential Comment Sodium Potassium Chloride Carbon Dioxide Anion Gap BUN Creatinine Estimated GFR Random Glucose Calcium Magnesium Total Bilirubin AST ALT Alkaline Phosphatase Troponin I Total Protein Albumin Lipase Urine Color Yellow Urine Clarity Clear Urine pH 5.0 Ur Specific [place] 1.006 Urine Protein Negative Urine Glucose (UA) Negative Urine Ketones Negative Urine Occult Blood Small H Urine Nitrate Negative Urine Bilirubin Negative Urine Urobilinogen Less than 2 Ur Leukocyte Esterase Negative Urine RBC 1 Urine WBC 1 Ur Squamous Epith Cells <1 Urine Bacteria Occasional H Urine Mucus Few H Micro UA Comment Culture not ind Ur Microscopic Review Not Reportable Urine Culture Comments Culture not ind - Imaging Impressions Abdomen/Pelvis CT 06/13/18 21:18 CONCLUSION: 1. Biliary stent in the common bile duct with multiple stones in the common bile duct. There is intrahepatic and extrahepatic biliary duct dilatation. There is some vague increased density seen in the martha hepatis region. This could be secondary to debris filled ducts. An underlying mass in this region cannot be excluded. 2. Dilatation the pancreatic duct. <Lu Frazier - Last Filed: 06/14/18 10:29> - Labs CBC & Chem 7: 06/13/18 21:25 06/14/18 09:32 Labs: Laboratory Results - last 24 hr 06/13/18 06/13/18 06/13/18 21:25 21:25 22:30 WBC 10.0 RBC 5.44 H Hgb 14.5 Hct 45.0 MCV 82.7 MCH 26.7 L MCHC 32.3 RDW 14.3 Plt Count 175 MPV 10.1 Neut % (Auto) 70.4 H Lymph % (Auto) 19.3 [place] % (Auto) 9.5 H Eos % (Auto) 0.4 Baso % (Auto) 0.4 Neut # (Auto) 7.1 Lymph # (Auto) 1.9 [place] # (Auto) 1.0 H Eos # (Auto) 0.0 Baso # (Auto) 0.0 WBC Differential . Differential Comment Auto diff final Sodium 129 L Potassium 6.1 H 3.8 D Chloride 101 Carbon Dioxide 22.2 Anion Gap 6 BUN 7 Creatinine 0.80 Estimated GFR 89 Random Glucose 83 Calcium 8.4 L Magnesium 2.2 Total Bilirubin 1.3 H AST 67 H ALT 75 H Alkaline Phosphatase 270 H Troponin I Less than 0.02 L Total Protein 8.8 H Albumin 3.5 Lipase 57 L Urine Color Urine Clarity Urine pH Ur Specific [place] Urine Protein Urine Glucose (UA) Urine Ketones Urine Occult Blood Urine Nitrate Urine Bilirubin Urine Urobilinogen Ur Leukocyte Esterase Urine RBC Urine WBC Ur Squamous Epith Cells Urine Bacteria Urine Mucus Micro UA Comment Ur Microscopic Review Urine Culture Comments 06/13/18 06/14/18 23:00 09:32 WBC RBC Hgb Hct MCV MCH MCHC RDW Plt Count MPV Neut % (Auto) Lymph % (Auto) [place] % (Auto) Eos % (Auto) Baso % (Auto) Neut # (Auto) Lymph # (Auto) [place] # (Auto) Eos # (Auto) Baso # (Auto) WBC Differential Differential Comment Sodium 138 Potassium 3.8 Chloride 107 Carbon Dioxide 25.1 Anion Gap 6 BUN 6 L Creatinine 0.66 Estimated GFR Greater than 89 Random Glucose 79 Calcium 8.2 L Magnesium Total Bilirubin AST ALT Alkaline Phosphatase Troponin I Total Protein Albumin Lipase Urine Color Yellow Urine Clarity Clear Urine pH 5.0 Ur Specific [place] 1.006 Urine Protein Negative Urine Glucose (UA) Negative Urine Ketones Negative Urine Occult Blood Small H Urine Nitrate Negative Urine Bilirubin Negative Urine Urobilinogen Less than 2 Ur Leukocyte Esterase Negative Urine RBC 1 Urine WBC 1 Ur Squamous Epith Cells <1 Urine Bacteria Occasional H Urine Mucus Few H Micro UA Comment Culture not ind Ur Microscopic Review Not Reportable Urine Culture Comments Culture not ind - Imaging Impressions Abdomen/Pelvis CT 06/13/18 21:18 CONCLUSION: 1. Biliary stent in the common bile duct with multiple stones in the common bile duct. There is intrahepatic and extrahepatic biliary duct dilatation. There is some vague increased density seen in the martha hepatis region. This could be secondary to debris filled ducts. An underlying mass in this region cannot be excluded. 2. Dilatation the pancreatic duct. <David Lepe - Last Filed: 06/14/18 14:45> Assessment and Plan - Plan 57-year-old female who entered the emergency room for further evaluation on with mid and right upper quadrant abdominal pain. Onset of symptoms approximately 3 weeks ago which have worsened over the past week. Patient also notes fever and chills for the past week along with some nausea and decreased appetite and bloating. Patient does have a history of constipation but denies any straining and denies any melena stools or diarrhea. Patient does have a history of anemia as well as gallstones and had biliary stent replacement approximately 2013 or 2014 without any follow-up. Patient also notes daily alcohol consumption of beer and occasional shots of liquor. Current labs show hemoglobin 14.5, WBC count 10, bilirubin 1.3, AST 67, ALT 75, alkaline phosphatase 270, and lipase normal at 57. Gastroenterology was consulted to assist with biliary stent replacement and plan of care. Patient does note brother positive history of colon cancer at the age of 38 and patient notes no previous colonoscopy but EGD was evaluated with previous biliary stent placement. CT scan of the abdomen and pelvis does show a biliary stent in the common bile duct with multiple stones in the common bile duct. There is intrahepatic and extrahepatic biliary duct dilatation along with dilatation of the pancreatic duct. Some vague increased density seen in the martha hepatis region this could be debris-filled ducts but an underlying mass in this region cannot be excluded. Common bile duct obstruction intrahepatic and extrahepatic Pancreatic duct obstruction, rule out mass Daily alcohol consumption consistent of beer and occasional shots of liquor Symptoms of chills and fever as well as right upper quadrant and mid upper abdominal pain onset for the past 3 weeks Hyperbilirubinemia, could be related to hepatocellular disease versus alcohol versus obstruction versus medications Mild transaminitis could be related to fatty liver versus hepatocellular disease versus alcohol versus obstruction Plan Diet n.p.o. for now Consent for ERCP today, scheduled for approximately [address] Lepe , procedure explained to patient Discussed alcohol abstinence Discussed outpatient colonoscopy after patient is feeling better and follow-up in the GI office Added MiraLAX daily Zofran and pain management as needed per attending Monitor labs including LFTs and bilirubin Supportive care Patient was seen per myself and Dr. Lepe, note was written on his behalf <Lu Frazier - Last Filed: 06/14/18 10:29> - Plan Seen and examined with [employer]ATOR, ercp planned. Monitor labs. <David Lepe - Last Filed: 06/14/18 14:45>
[2018-06-14 10:44] LABS: Anion Gap 6 meq/L (5-15); Blood Urea Nitrogen 6 mg/dL (7-18); Calcium 8.2 mg/dL (8.5-10.1); Carbon Dioxide 25.1 meq/L (21.0-32.0); Chloride 107 meq/L (98-107); Glomerular Filtration Rate Greater Than 89 mL/min (>89); Glucose,Random 79 mg/dL (74-106); Potassium 3.8 meq/L (3.5-5.1); Sodium 138 meq/L (136-145)
[2018-06-14] MEDS: Sodium Chloride 0.9% 2 ML Flush BID IV.FLUSH SCH ×2 (14:09→20:08)
[2018-06-14] MEDS ORDERED: Iohexol Inj 350 MG/ML 100 ML Bottle (for RAD Diag) IVCONTRAST ONE (15:01)
[2018-06-14] MEDS ORDERED: Iohexol 350 MG/ML 50 ML Vial (for Rad Diag) PO ONE (15:17)
[2018-06-14] MEDS ORDERED: Metoprolol Tartrate 25 MG Tablet PO ONE (15:25)
[2018-06-14] MEDS ORDERED: Chlorhexidine Gluconate 2% 1 Pack (2 Cloths) TOPICAL ONE (15:25)
--- NOTE | 2018-06-14 15:29 | GIPROC ---
[facility] [address] [facility] [place]. [facility], [id number] ERCP PROCEDURE REPORT EXAM DATE: 06/14/2018 PATIENT NAME: Naz Mccabe MR #: [id number] BIRTHDATE: 1960 ATTENDING: David Lepe MD ORDER #: [id number] PLASTIC MANAGER: Saji Shea Foust, Dan, Pena, Gabriela, and Kerri Edwards STATUS: inpatient INDICATIONS: The patient is a 57 yr old female here for an ERCP due to abdominal pain of suspected biliary origin, abnormal abdominal CT, bile duct stone on Computed Tomogram Scan, and abnormal liver function test PROCEDURE PERFORMED: ERCP with removal of calculus/calculi ERCP with stent placement MEDICATIONS: None and Per Anesthesia. CONSENT: The patient understands the risks and benefits of the procedure and understands that these risks include, but are not limited to: sedation, allergic reaction, infection, perforation and/or bleeding. Alternative means of evaluation and treatment include, among others: physical exam, x-rays, and/or surgical intervention. The patient elects to proceed with this endoscopic procedure. medical equipment was checked for proper function. Hand hygiene and appropriate measures for infection prevention was taken. After the risks, benefits and alternatives of the procedure were thoroughly explained, Informed was verified, confirmed and timeout was successfully executed by the treatment team. With the patient in left semi-prone position, medications were administered intravenously.The Pentax [id number] was passed from the mouth into the esophagus and further advanced from the esophagus into the stomach. From stomach scope was directed to the second portion of the duodenum. Major papilla was aligned with the duodenoscope. The scope position was confirmed fluoroscopically. Rest of the findings/therapeutics are given below. The scope was then completely withdrawn from the patient and the procedure completed. The pulse, BP, and O2 saturation were monitored and documented by the physician and the nursing staff throughout the entire procedure. The patient was cared for as planned according to standard protocol. The patient was then discharged to recovery in stable condition and with appropriate post procedure care. The ampulla was located the second portion of the duodenum, in a position more proximal than normal. Previuosly placed stent snared and removed through the mouth. CBD dilated with multiple filling defects. Balloon sweep x 2 with 15mm balloon. Debris and stoned xtruded through the ampulla. Duct washed with NS. Some bleeding at the ampulla, 8.5 x 7cm stent placed. ADVERSE EVENT: There were no complications. IMPRESSIONS: 1. Plastic stent placement 2. Common bile duct stone(s) RECOMMENDATIONS: 1. Antibiotics 2. Liver enzymes REPEAT EXAM: Return 1 month ERCP David Lepe MD eSigned: David Lepe MD 06/14/2018 3:29 PM cc:
--- NOTE | 2018-06-14 15:54 | P.PNIM ---
Subjective Interval history: Patient complains of some mild right upper quadrant pain however it is improved since initial admission. Physical Exam Vital signs: Vital Signs 06/13/18 17:15 06/13/18 21:05 06/13/18 21:38 Temperature 99.0 F Pulse Rate 80 82 65 Respiratory Rate 16 Blood Pressure 148/71 H 161/71 H Pulse Oximetry 100 99 06/14/18 00:04 06/14/18 02:26 06/14/18 03:08 Temperature 99.2 F Pulse Rate 61 74 72 Respiratory Rate 16 18 18 Blood Pressure 124/62 138/59 L 142/62 H Pulse Oximetry 100 100 98 06/14/18 07:40 06/14/18 08:00 Temperature 99.9 F H 98.3 F Pulse Rate 73 69 Respiratory Rate 12 16 Blood Pressure 116/56 L 113/56 L Pulse Oximetry 99 99 Intake & Output 06/13/18 06/14/18 06/14/18 18:59 06:59 18:59 Intake Total 1000 / 1000 Balance 1000 / 1000 Weight 65.771 kg Intake: IV 1000 / 1000 NS Inj 1,000 ML @ Wide Open IV. 1000 / 1000 SIG BOLUS ONE Rx#:[id number] Other: # Voids 0 Date of Last Bowel Movement 06/12/18 Narrative: General patient complains of mild abdominal pain, improved from yesterday. HEENT extraocular movements are intact, clear oropharyngeal mucosa, no JVD Cardiovascular S1-S2 audible, RRR, no murmurs rubs or gallops Respiratory clear to auscultation bilaterally Abdomen soft, patient complains of some abdominal pain in the right upper quadrant. Extremities no edema 2+ distal pulses in bilateral upper and lower extremities Neuro no neurological deficits. Results - Labs CBC & Chem 7: 06/13/18 21:25 06/14/18 09:32 Laboratory Results - last 24 hr 06/13/18 06/13/18 06/13/18 21:25 21:25 22:30 WBC 10.0 RBC 5.44 H Hgb 14.5 Hct 45.0 MCV 82.7 MCH 26.7 L MCHC 32.3 RDW 14.3 Plt Count 175 MPV 10.1 Neut % (Auto) 70.4 H Lymph % (Auto) 19.3 [place] % (Auto) 9.5 H Eos % (Auto) 0.4 Baso % (Auto) 0.4 Neut # (Auto) 7.1 Lymph # (Auto) 1.9 [place] # (Auto) 1.0 H Eos # (Auto) 0.0 Baso # (Auto) 0.0 WBC Differential . Differential Comment Auto diff final Sodium 129 L Potassium 6.1 H 3.8 D Chloride 101 Carbon Dioxide 22.2 Anion Gap 6 BUN 7 Creatinine 0.80 Estimated GFR 89 Random Glucose 83 Calcium 8.4 L Magnesium 2.2 Total Bilirubin 1.3 H AST 67 H ALT 75 H Alkaline Phosphatase 270 H Troponin I Less than 0.02 L Total Protein 8.8 H Albumin 3.5 Lipase 57 L Urine Color Urine Clarity Urine pH Ur Specific [place] Urine Protein Urine Glucose (UA) Urine Ketones Urine Occult Blood Urine Nitrate Urine Bilirubin Urine Urobilinogen Ur Leukocyte Esterase Urine RBC Urine WBC Ur Squamous Epith Cells Urine Bacteria Urine Mucus Micro UA Comment Ur Microscopic Review Urine Culture Comments 06/13/18 06/14/18 23:00 09:32 WBC RBC Hgb Hct MCV MCH MCHC RDW Plt Count MPV Neut % (Auto) Lymph % (Auto) [place] % (Auto) Eos % (Auto) Baso % (Auto) Neut # (Auto) Lymph # (Auto) [place] # (Auto) Eos # (Auto) Baso # (Auto) WBC Differential Differential Comment Sodium 138 Potassium 3.8 Chloride 107 Carbon Dioxide 25.1 Anion Gap 6 BUN 6 L Creatinine 0.66 Estimated GFR Greater than 89 Random Glucose 79 Calcium 8.2 L Magnesium Total Bilirubin AST ALT Alkaline Phosphatase Troponin I Total Protein Albumin Lipase Urine Color Yellow Urine Clarity Clear Urine pH 5.0 Ur Specific [place] 1.006 Urine Protein Negative Urine Glucose (UA) Negative Urine Ketones Negative Urine Occult Blood Small H Urine Nitrate Negative Urine Bilirubin Negative Urine Urobilinogen Less than 2 Ur Leukocyte Esterase Negative Urine RBC 1 Urine WBC 1 Ur Squamous Epith Cells <1 Urine Bacteria Occasional H Urine Mucus Few H Micro UA Comment Culture not ind Ur Microscopic Review Not Reportable Urine Culture Comments Culture not ind - Imaging Impressions Abdomen/Pelvis CT 06/13/18 21:18 CONCLUSION: 1. Biliary stent in the common bile duct with multiple stones in the common bile duct. There is intrahepatic and extrahepatic biliary duct dilatation. There is some vague increased density seen in the martha hepatis region. This could be secondary to debris filled ducts. An underlying mass in this region cannot be excluded. 2. Dilatation the pancreatic duct. Assessment and Plan - Plan This patient is a 49-year-old female with a history of gallbladder disease status post stent placement in 2013 and 2014. The patient presented with complaints of right upper quadrant abdominal pain that started approximately 2 weeks ago however has been getting worse over the past few days. She also notes having subjective fevers and chills as well as nausea and a poor p.o. appetite. Imaging at our facility shows intra-and extrahepatic biliary duct dilation with a stent in the common bile duct as well as multiple stones seen in the common bile duct. 1. Abdominal pain secondary to common bile duct obstruction 2. Transaminitis secondary to #1 The patient is currently n.p.o. She says her symptoms have somewhat improved however still has some right upper quadrant abdominal pain. GI consult has been placed and the plan is to schedule the patient for ERCP possibly today. She will be kept n.p.o., Zofran will be given as needed for nausea. Continue IV fluids for now. Will follow up with GI for further recommendations after she undergoes ERCP. No pharmacotherapy for DVT prophylaxis the patient will likely undergo a procedure today.
--- NOTE | 2018-06-14 15:58 | FL ---
EXAM DATE: 06/14/2018 12:00 AM EDT AGE/SEX: 57 years / Female INDICATIONS: Obstruction, stent placement. CLINICAL DATA: This is the patient's initial encounter. Patient reports that signs and symptoms have been present for 1 day and indicates a pain score of Nonresponsive. MEDICAL/SURGICAL HISTORY: None. None. COMPARISON: [facility] [place] ABDOMEN & PELVIS W CONTRAST, 06/13/2018. . FINDINGS: An ERCP was performed by the ordering physician. The images demonstrate cannulation and injection of contrast into the common bile duct which is mildly distended. Multiple filling defects are seen part icularly on image #3. The final image demonstrates placement of a biliary stent within the common yue e duct. CONCLUSION: Choledocholithiasis and stent placement. Electronically signed by: Feliciano Cunningham MD 06/14/2018 3:56 PM EDT
[2018-06-14] MEDS ORDERED: Levofloxacin 500 mg Premix Inj 500 MG/100 ML PIGGYBACK IV.SIG SCH (16:00)
[2018-06-14] MEDS ORDERED: Sodium Chlor 0.9% Inj 500 ML IV.SIG SCH (16:00)
[2018-06-14] MEDS: amLODIPine 5 MG Tablet PO SCH (19:56)
--- NOTE | 2018-06-14 21:32 | ECG ---
Date Performed: 06/13/2018 Time Performed: 22:28:57 PTAGE: 57 years EKG: Sinus rhythm POSSIBLE LEFT ATRIAL ENLARGEMENT BORDERLINE LEFT AXIS DEVIATION MINOR NONSPECIFIC T WAVE CHANGE Comp ared to previous tracing, T WAVE CHANGES ARE SLIGHTLY MORE ABNORMAL, OTHERWISE NO SIGNIFICANT CHANGE BORDERLINE ECG PREVIOUS TRACING : 08/31/2014 15.17 DOCTOR: Tony Bryson Interpretating Date/Time 06/14/2018 21:30:53
[2018-06-14] MEDS ORDERED: Morphine Inj 4 MG/ML Vial IV.PUSH ONE (22:22)
[2018-06-15] MEDS: Sod Chloride 0.9% Inj 1,000 ML IV.CONT SCH ×2 (00:23→09:15)
[2018-06-15 04:32] VITALS: RESP 18; TEMP 99.1
[2018-06-15 07:40] VITALS: BP 115/58; PULSE 66; O2SAT 97
[2018-06-15 08:46] LABS: Baso % (Auto) 0.5 % (0.0-2.0); Eos # (Auto) 0.1 th/mm3 (0.0-0.4); Eos % (Auto) 0.8 % (0.0-4.0); Hematocrit 36.7 % (35.0-46.0); Hemoglobin 12.5 gm/dL (11.6-15.3); Lymph # (Auto) 1.6 th/mm3 (1.0-4.8); Lymph % (Auto) 23.7 % (9.0-44.0); Mean Corpuscular HGB Conc 34.2 % (32.0-36.0); Mean Corpuscular Hemoglobin 27.8 pg (27.0-34.0); Mean Corpuscular Volume 81.3 fL (80.0-100.0); Mean Platelet Volume 10.6 fL (7.0-11.0); Mono # (Auto) 0.8 th/mm3 (0.0-0.9); Mono % (Auto) 11.3 % (0.0-8.0); Neut # (Auto) 4.3 th/mm3 (1.8-7.7); Neut % (Auto) 63.7 % (16.0-70.0); Platelet Count 171 th/mm3 (150-450); Red Blood Count 4.51 mil/mm3 (4.00-5.30); Red Cell Distribution Width 13.5 % (11.6-17.2); White Blood Count 6.8 th/mm3 (4.0-11.0)
[2018-06-15 09:09] LABS: Alanine Aminotransferase 53 U/L (10-53); Albumin 2.6 g/dL (3.4-5.0); Alkaline Phosphatase 218 U/L (45-117); Anion Gap 7 meq/L (5-15); Aspartate Aminotransferase 39 U/L (15-37); Blood Urea Nitrogen 5 mg/dL (7-18); Calcium 7.9 mg/dL (8.5-10.1); Carbon Dioxide 25.2 meq/L (21.0-32.0); Chloride 107 meq/L (98-107); Glomerular Filtration Rate Greater Than 89 mL/min (>89); Glucose,Random 97 mg/dL (74-106); Potassium 3.6 meq/L (3.5-5.1); Sodium 139 meq/L (136-145); Total Protein 6.7 g/dL (6.4-8.2)
[2018-06-15] MEDS: amLODIPine 5 MG Tablet PO SCH (09:13)
[2018-06-15] MEDS: Sodium Chloride 0.9% 2 ML Flush BID IV.FLUSH SCH (09:14)
--- NOTE | 2018-06-15 09:46 | P.PNGI ---
Subjective Interval history: Patient is sleeping and turning from side to side but complaints that she still sore right upper quadrant into her back. Some nausea but no vomiting no obvious bleeding Physical Exam Vital signs: Vital Signs 06/14/18 15:30 06/14/18 15:45 06/14/18 16:00 Temperature 98.7 F 99.0 F Pulse Rate 68 64 64 Respiratory Rate 16 16 16 Blood Pressure 152/83 H 154/77 H 145/71 H Pulse Oximetry 100 100 99 06/14/18 20:00 06/14/18 22:10 06/15/18 00:28 Temperature 98.9 F 99.3 F Pulse Rate 77 80 Respiratory Rate 18 16 18 Blood Pressure 138/67 124/63 Pulse Oximetry 97 97 06/15/18 00:46 06/15/18 04:31 06/15/18 07:37 Temperature 99.1 F 99.1 F Pulse Rate 71 66 Respiratory Rate 16 18 18 Blood Pressure 116/56 L 115/58 L Pulse Oximetry 96 97 Intake & Output 06/14/18 06/15/18 06/15/18 18:59 06:59 18:59 Intake Total 1210 / 1210 100 / 100 1000 / 1000 Balance 1210 / 1210 100 / 100 1000 / 1000 Intake: IV 510 / 510 100 / 100 1000 / 1000 NS Inj 1,000 ML @ 100 mls/hr IV 1000 / 1000 .CONT .Q10H PHIL Rx#:[id number] Levaquin 500 mg Premix Inj 500 10 / 10 mg In 100 ml @ 100 mls/hr IV. SIG Q24H PHIL Rx#:[id number] NS Inj 500 ML @ 30 mls/hr IV. 500 / 500 SIG .Q10H PHIL Rx#:[id number] Rocephin Inj 1,000 MG In NS Inj 100 / 100 100 ML @ 200 mls/hr IV.SIG Q24H PHIL Rx#:[id number] Oral 0 / 0 Anesthesia Amount 700 / 700 Other: # Voids 3 - Constitutional mild distress, obese, disheveled, cooperative - Routine HEENT Exam Head: Present: normocephalic ENT: Present: mucous membranes moist - Routine Respiratory Exam Present: accessory muscle use - Routine Cardiovascular Exam Present: S1 (Even, unlabored at rest), S2 - Routine Abdominal Exam Present: soft, normoactive bowel sounds (Soft bowel sounds some mild tenderness right upper quadrant into mid back), distended (No obvious distention) - Routine Skin Exam Present: intact Results - Labs CBC & Chem 7: 06/15/18 07:30 06/15/18 07:30 Laboratory Results - last 24 hr 06/14/18 06/15/18 06/15/18 09:32 07:30 07:30 WBC 6.8 RBC 4.51 Hgb 12.5 D Hct 36.7 MCV 81.3 MCH 27.8 MCHC 34.2 RDW 13.5 Plt Count 171 MPV 10.6 Neut % (Auto) 63.7 Lymph % (Auto) 23.7 [place] % (Auto) 11.3 H Eos % (Auto) 0.8 Baso % (Auto) 0.5 Neut # (Auto) 4.3 Lymph # (Auto) 1.6 [place] # (Auto) 0.8 Eos # (Auto) 0.1 Baso # (Auto) 0.0 WBC Differential . Differential Comment Auto diff final Sodium 138 139 Potassium 3.8 3.6 Chloride 107 107 Carbon Dioxide 25.1 25.2 Anion Gap 6 7 BUN 6 L 5 L Creatinine 0.66 0.56 Estimated GFR Greater than 89 Greater than 89 Random Glucose 79 97 Calcium 8.2 L 7.9 L Total Bilirubin 1.0 AST 39 H ALT 53 Alkaline Phosphatase 218 H Total Protein 6.7 D Albumin 2.6 L D - Imaging Impressions GI Procedure 06/14/18 00:00 CONCLUSION: Choledocholithiasis and stent placement. Assessment and Plan - Plan 57-year-old female who entered the emergency room for further evaluation on with mid and right upper quadrant abdominal pain. Onset of symptoms approximately 3 weeks ago which have worsened over the past week. Patient also notes fever and chills for the past week along with some nausea and decreased appetite and bloating. Patient does have a history of constipation but denies any straining and denies any melena stools or diarrhea. Patient does have a history of anemia as well as gallstones and had biliary stent replacement approximately 2013 or 2014 without any follow-up. Patient also notes daily alcohol consumption of beer and occasional shots of liquor. Current labs show hemoglobin 14.5, WBC count 10, bilirubin 1.3, AST 67, ALT 75, alkaline phosphatase 270, and lipase normal at 57. Gastroenterology was consulted to assist with biliary stent replacement and plan of care. Patient does note brother positive history of colon cancer at the age of 38 and patient notes no previous colonoscopy but EGD was evaluated with previous biliary stent placement. CT scan of the abdomen and pelvis does show a biliary stent in the common bile duct with multiple stones in the common bile duct. There is intrahepatic and extrahepatic biliary duct dilatation along with dilatation of the pancreatic duct. Some vague increased density seen in the martha hepatis region this could be debris-filled ducts but an underlying mass in this region cannot be excluded. Common bile duct obstruction intrahepatic and extrahepatic Pancreatic duct obstruction, rule out mass Daily alcohol consumption consistent of beer and occasional shots of liquor Symptoms of chills and fever as well as right upper quadrant and mid upper abdominal pain onset for the past 3 weeks Hyperbilirubinemia, could be related to hepatocellular disease versus alcohol versus obstruction versus medications Mild transaminitis could be related to fatty liver versus hepatocellular disease versus alcohol versus obstruction 06/15/2018 patient is status post ERCP with Dr. Lepe on 06/14/2018 with plastic stent replacement. There were no complications common bile duct stones were removed. Will need return follow-up ERCP in 1 month. Patient complains of some soreness in her right upper quadrant into her back mild nausea often known but no vomiting labs are stable with current hemoglobin 12.5 alkaline phosphatase decreased to 18, bilirubin mild decreased to 1, AST decreased to 39 ALT 53. Encourage patient to eat and drink, need to evaluate any further nausea or vomiting. Also increased mobility today to be dangle on side of the bed up in chair if possible. Will need to follow-up in the GI office post her discharge. Consider outpatient colonoscopy when patient is feeling better. History of constipation, now has MiraLAX daily Plan Diet as tolerated monitor hydration, regular diet alcohol abstinence outpatient colonoscopy after patient is feeling better and follow-up in the GI office Follow-up ERCP in 1 month MiraLAX daily Zofran and pain management as needed per attending Monitor labs Supportive care Patient was seen per myself and Dr. Armendariz, note was written on his behalf
--- NOTE | 2018-06-15 12:06 | P.DS ---
Date of admission: 06/14/18 00:57 Primary care physician: No Primary Care Physician Brief History from admission: This patient is a 49-year-old female with a history of gallbladder disease status post stent placement in 2013 and 2014. The patient presented with complaints of right upper quadrant abdominal pain that started approximately 2 weeks ago however has been getting worse over the past few days. She also notes having subjective fevers and chills as well as nausea and a poor p.o. appetite. Imaging at our facility shows intra-and extrahepatic biliary duct dilation with a stent in the common bile duct as well as multiple stones seen in the common bile duct. DS: Medications - Discharge Medications Prescriptions: amlodipine [Norvasc] 5 mg PO DAILY #30 tab DS: Summary Hospital Course: This patient is a 49-year-old female with a history of gallbladder disease status post stent placement in 2013 and 2014. The patient presented with complaints of right upper quadrant abdominal pain that started approximately 2 weeks ago however has been getting worse over the past few days. She also notes having subjective fevers and chills as well as nausea and a poor p.o. appetite. Imaging at our facility shows intra-and extrahepatic biliary duct dilation with a stent in the common bile duct as well as multiple stones seen in the common bile duct. 1. Intractable abdominal pain secondary to common bile duct obstruction The patient presented with the symptoms mentioned above. Labs showed elevated LFTs and imaging showed dilation of the extra and intrahepatic biliary ducts. GI was consulted to evaluate the patient. Patient underwent ERCP and the patient's previously placed stent was removed. The bruits and stones were removed and a stent was put in place. The patient tolerated the procedure well. She was then started on a p.o. diet. The patient is tolerating her diet without any complaints of nausea or vomiting. She will be discharged home today. The plan is for the patient to follow-up with gastroenterology outpatient in 1 month for a repeat ERCP. Patient should also have an outpatient colonoscopy done as well. 2. Hypertension The patient was found to have an elevated blood pressure throughout the hospitalization. She was started on 5 mg of amlodipine which she will be given on discharge. She should follow-up with her primary care physician in the next 1-2 weeks and her blood pressure medication can be adjusted as needed. - Time Spent with Patient Total time spent providing and/or coordinating discharge services: Greater than 30 minutes - Quality: VTE Deep Vein Thrombosis/Pulmonary Embolism Present on Admission: No Exam Vital signs: Vital Signs 06/14/18 15:30 06/14/18 15:45 06/14/18 16:00 Temperature 98.7 F 99.0 F Pulse Rate 68 64 64 Respiratory Rate 16 16 16 Blood Pressure 152/83 H 154/77 H 145/71 H Pulse Oximetry 100 100 99 06/14/18 20:00 06/14/18 22:10 06/15/18 00:28 Temperature 98.9 F 99.3 F Pulse Rate 77 80 Respiratory Rate 18 16 18 Blood Pressure 138/67 124/63 Pulse Oximetry 97 97 06/15/18 00:46 06/15/18 04:31 06/15/18 07:37 Temperature 99.1 F 99.1 F Pulse Rate 71 66 Respiratory Rate 16 18 18 Blood Pressure 116/56 L 115/58 L Pulse Oximetry 96 97 Intake & Output 06/14/18 06/15/18 06/15/18 18:59 06:59 18:59 Intake Total 1210 / 1210 100 / 100 1000 / 1000 Balance 1210 / 1210 100 / 100 1000 / 1000 Intake: IV 510 / 510 100 / 100 1000 / 1000 NS Inj 1,000 ML @ 100 mls/hr IV 1000 / 1000 .CONT .Q10H PHIL Rx#:[id number] Levaquin 500 mg Premix Inj 500 10 / 10 mg In 100 ml @ 100 mls/hr IV. SIG Q24H PHIL Rx#:[id number] NS Inj 500 ML @ 30 mls/hr IV. 500 / 500 SIG .Q10H PHIL Rx#:[id number] Rocephin Inj 1,000 MG In NS Inj 100 / 100 100 ML @ 200 mls/hr IV.SIG Q24H PHIL Rx#:[id number] Oral 0 / 0 Anesthesia Amount 700 / 700 Other: # Voids 3 Narrative: General patient in no acute distress HEENT extraocular movements are intact, clear oropharyngeal mucosa, no JVD Cardiovascular S1-S2 audible Respiratory clear to auscultation bilaterally Abdomen soft, nontender, nondistended, normal bowel sounds Extremities no edema 2+ distal pulses in bilateral upper and lower extremities Neuro no neuro deficits Results Procedures completed during hospitalization: ercp Labs on day of discharge: Labs from last 24 hours 10/20/18 10/20/18 07:30 07:30 WBC 6.8 RBC 4.51 Hgb 12.5 D Hct 36.7 MCV 81.3 MCH 27.8 MCHC 34.2 RDW 13.5 Plt Count 171 MPV 10.6 Neut % (Auto) 63.7 Lymph % (Auto) 23.7 [place] % (Auto) 11.3 H Eos % (Auto) 0.8 Baso % (Auto) 0.5 Neut # (Auto) 4.3 Lymph # (Auto) 1.6 [place] # (Auto) 0.8 Eos # (Auto) 0.1 Baso # (Auto) 0.0 WBC Differential . Differential Comment Auto diff final Sodium 139 Potassium 3.6 Chloride 107 Carbon Dioxide 25.2 Anion Gap 7 BUN 5 L Creatinine 0.56 Estimated GFR Greater than 89 Random Glucose 97 Calcium 7.9 L Total Bilirubin 1.0 AST 39 H ALT 53 Alkaline Phosphatase 218 H Total Protein 6.7 D Albumin 2.6 L D - Impressions ITS Impressions Abdomen/Pelvis CT 06/13/18 21:18 CONCLUSION: 1. Biliary stent in the common bile duct with multiple stones in the common bile duct. There is intrahepatic and extrahepatic biliary duct dilatation. There is some vague increased density seen in the martha hepatis region. This could be secondary to debris filled ducts. An underlying mass in this region cannot be excluded. 2. Dilatation the pancreatic duct. GI Procedure 06/14/18 00:00 CONCLUSION: Choledocholithiasis and stent placement. Discharge Plan - Discharge Disposition Patient Disposition: 01 Discharge Home - Discharge Condition Condition: Good - Discharge Order Discharge Orders: Discharge Order (Routine); Ordered 06/15/18 Ordered By: Itzel Huber - Physicians Team Primary Care Provider: Primary Care Tracy Roque Attending Provider: Itzel Huber Other Providers: Nicky Lyon MD
== END 2018-06-15 13:29 | disposition home or self-care (01) ==
LOC: NEDA 16:42 → NEPE 16:42 → NEDA 06-14 02:42 → NEPGCP 06-14 03:05
PROVIDERS: ADMIT Hospitalist; ATTEND Hospitalist